=== PATIENT | male | born 1975 ===

== ENCOUNTER 2017-06-21 17:05 | Emergency (ER) | payer SELFPAY ==
--- NOTE | 2017-06-21 17:15 | C.PDOC ---
History Of Present Illness 42M c/o chest pain and productive cough that started several hours ago. the pt says he has been smoking crack continuously and has not slept for 2 days. Time Seen by Provider: 06/21/17 17:13 Chief Complaint (Nursing): Substance Abuse Past Medical History Vital Signs: Last Vital Signs Temp 98.2 F 06/21/17 19:02 Pulse 91 H 06/21/17 19:02 Resp 18 06/21/17 19:02 BP 107/66 06/21/17 19:02 Pulse Ox 97 06/21/17 19:02 Family History: States: Other Other Family History: nc - Social History Hx Alcohol Use: Yes Hx Substance Use: Yes Review Of Systems Constitutional: Negative for: Fever, Chills Cardiovascular: Positive for: Chest Pain. Negative for: Edema Respiratory: Positive for: Cough, Sputum. Negative for: Shortness of Breath, Hemoptysis Gastrointestinal: Negative for: Vomiting, Abdominal Pain Neurological: Negative for: Weakness, Numbness, Headache Psych: Negative for: Psychosis, Suicidal ideation Physical Exam - Physical Exam Appears: Well, Non-toxic, No Acute Distress Skin: Warm, Dry Head: Atraumatic Eye(s): bilateral: PERRL Nose: No Epistaxis Oral Mucosa: Moist Neck: Normal ROM Respiratory: No Decreased Breath Sounds, No Accessory Muscle Use, No Rales, No Rhonchi, No Stridor, No Wheezing Gastrointestinal/Abdominal: Soft, No Tenderness Extremity: No Swelling Neurological/Psych: Oriented x3, Other (no focal deficits) ED Course And Treatment - Laboratory Results Result Diagrams: 06/21/17 18:22 06/21/17 18:22 - Radiology CXR: Interpreted by Me, Viewed By Me CXR Interpretation: Yes: No Acute Disease Medical Decision Making Medical Decision Making: ecg- nsr 72, nl axis, nl int, no acute ischemia cxr- nad the pt requested ativan because he says he doesn't feel well from all the crack he has been smoking. he is resting quietly, calm, in no distress. Disposition - Disposition Referrals: [facility] [Outside] Disposition: HOME/ ROUTINE Disposition Time: 19:05 Condition: STABLE Additional Instructions: Please follow up with a primary doctor. Return to the ER for any worsening symptoms or for any other concerns. Instructions: Cocaine Abuse (ED) Forms: General Discharge Instructions, [employer] [facility] (Wallisian) - Clinical Impression Clinical Impression: Cocaine abuse
[2017-06-21 18:25] LABS: BASO # 0.1 K/uL (0.0-0.2); BASO % 0.8 % (0.0-2.0); EOS # 0.4 K/uL (0.0-0.7); EOS % 5.8 % (0.0-4.0); HEMOGLOBIN 14.8 g/dL (12.0-18.0); LYMPH # 1.8 K/uL (1.0-4.3); LYMPH % 28.3 % (20.0-40.0); MEAN CELL VOLUME 94.2 fL (80.0-94.0); MEAN CORPUSCULAR HEMOGLOBIN 32.2 pg (27.0-31.0); MEAN CORPUSCULAR HGB CONC 34.2 g/dL (33.0-37.0); MEAN PLATELET VOLUME 8.1 fL (7.2-11.7); MONO # 0.8 K/uL (0.0-0.8); MONO % 13.2 % (0.0-10.0); NEUT # 3.2 K/uL (1.8-7.0); NEUT % 51.9 % (50.0-75.0); NRBC % 0.1 % (0.0-2.0); RBC 4.59 Mil/uL (4.40-5.90); RED CELL DISTRIBUTION WIDTH 13.6 % (11.5-14.5); WHITE BLOOD COUNT 6.2 K/uL (4.8-10.8)
[2017-06-21 18:44] LABS: ALB/GLOB RATIO 1.5 (1.0-2.1); ALBUMIN 3.9 g/dL (3.5-5.0); ALT/SGPT 32 U/L (21-72); AST/SGOT 25 U/L (17-59); BLOOD UREA NITROGEN 25 mg/dL (9-20); CALCIUM 8.6 mg/dl (8.6-10.4); GFR AFRICAN-AMERICAN > 60; GFR NON-AFRICAN AMERICAN > 60
[2017-06-21 19:02] VITALS: BP 107/66; PULSE 91; RESP 18; TEMP 98.2; O2SAT 97
--- NOTE | 2017-06-21 21:15 | RAD ---
HISTORY: cp COMPARISON: No prior. TECHNIQUE: Chest PA and lateral FINDINGS: LUNGS: No active pulmonary disease. PLEURA: No significant pleural effusion identified. No pneumothorax apparent. CARDIOVASCULAR: Normal. OSSEOUS STRUCTURES: No significant abnormalities. VISUALIZED UPPER ABDOMEN: Normal. OTHER FINDINGS: None. IMPRESSION: No active disease.
== END 2017-06-21 19:10 | disposition home or self-care (01) ==
LOC: C.ER 17:05
DX: F14.10 Cocaine abuse, uncomplicated (principal)

== ENCOUNTER 2017-07-06 12:01 | Emergency (ER) | payer SELFPAY ==
[2017-07-06 12:09] VITALS: BP 124/80; PULSE 82; RESP 18; TEMP 97.5; O2SAT 100
--- NOTE | 2017-07-06 12:44 | C.PDOC ---
History Of Present Illness 42-YEAR-OLD MALE, PRESENTS TO THE EMERGENCY DEPARTMENT WANTING DETOX. CO B/L FOOT PAIN FOR UNK DURATION. "I JUST WANT TO SLEEP". EXAM EXT ATRAUM PSYCH CALM NO ACUTE INTOX REMAINDER NEG Time Seen by Provider: 07/06/17 12:16 Chief Complaint (Nursing): Substance Abuse History Per: Patient History/Exam Limitations: intoxication Current Symptoms Are (Timing): Still Present Past Medical History Reviewed: Historical Data, Nursing Documentation, Vital Signs Vital Signs: Last Vital Signs Temp 97.5 F L 07/06/17 12:08 Pulse 82 07/06/17 12:08 Resp 18 07/06/17 12:08 BP 124/80 07/06/17 12:08 Pulse Ox 100 07/06/17 12:48 Family History: States: No Known Family Hx - Social History Hx Alcohol Use: Yes Hx Substance Use: Yes - Immunization History Hx Tetanus Toxoid Vaccination: No Hx Influenza Vaccination: No Hx Pneumococcal Vaccination: No Review Of Systems Constitutional: Negative for: Fever, Chills Cardiovascular: Negative for: Chest Pain, Palpitations Respiratory: Negative for: Shortness of Breath Gastrointestinal: Negative for: Nausea, Vomiting Musculoskeletal: Positive for: Foot Pain. Negative for: Back Pain Neurological: Negative for: Weakness, Numbness, Headache, Dizziness Psych: Negative for: Suicidal ideation Physical Exam - Physical Exam Appears: Non-toxic, No Acute Distress, Other (CALM AND COOPERATIVE) Skin: Warm, Dry, No Rash Head: Atraumatic, Normacephalic Eye(s): bilateral: Normal Inspection, PERRL Nose: Normal Oral Mucosa: Moist Lips: Normal Appearing Neck: Normal ROM Cardiovascular: Rhythm Regular, No Murmur Respiratory: Normal Breath Sounds, No Accessory Muscle Use Extremity: Normal ROM, No Deformity Neurological/Psych: Oriented x3, Normal Speech, Other (NO FOCAL DEFICIT ) ED Course And Treatment O2 Sat by Pulse Oximetry: 100 (RA) Pulse Ox Interpretation: Normal - Physician Consult Information Time Consulting Physician Contacted: 12:48 Outcome Of Conversation: D/W CRISIS DUNG NO DETOX BEDS AVAIL Disposition Counseled Patient/Family Regarding: Diagnosis, Need For Followup - Disposition Referrals: [facility] [Outside] [facility] [Outside] Disposition: HOME/ ROUTINE Disposition Time: 12:42 Condition: GOOD Forms: [facility] (Belarusian), General Discharge Instructions - Clinical Impression Clinical Impression: Malingerer, Polysubstance abuse - Scribe Statement The provider has reviewed the documentation as recorded by the Scribe (Tiana Guevara) All medical record entries made by the Scribe were at my direction and personally dictated by me. I have reviewed the chart and agree that the record accurately reflects my personal performance of the history, physical exam, medical decision making, and the department course for this patient. I have also personally directed, reviewed, and agree with the discharge instructions and disposition.
--- NOTE | 2017-07-06 12:44 | C.PDOC ---
History Of Present Illness 42-YEAR-OLD MALE, PRESENTS TO THE EMERGENCY DEPARTMENT WITH COMPLAINTS OF Time Seen by Provider: 07/06/17 12:16 Chief Complaint (Nursing): Substance Abuse Past Medical History Reviewed: Historical Data, Nursing Documentation, Vital Signs Vital Signs: Last Vital Signs Temp 97.5 F L 07/06/17 12:08 Pulse 82 07/06/17 12:08 Resp 18 07/06/17 12:08 BP 124/80 07/06/17 12:08 Pulse Ox 100 07/06/17 12:08 Family History: States: No Known Family Hx - Social History Hx Alcohol Use: Yes Hx Substance Use: Yes - Immunization History Hx Tetanus Toxoid Vaccination: No Hx Influenza Vaccination: No Hx Pneumococcal Vaccination: No ED Course And Treatment O2 Sat by Pulse Oximetry: 100 Disposition - Disposition Referrals: [facility] [Outside] [facility] [Outside] Disposition: HOME/ ROUTINE Condition: GOOD Forms: General Discharge Instructions, [facility] (Estonian) - Clinical Impression Clinical Impression: Malingerer, Polysubstance abuse - Scribe Statement The provider has reviewed the documentation as recorded by the Scribe (Eloisa Guevara) All medical record entries made by the Scribe were at my direction and personally dictated by me. I have reviewed the chart and agree that the record accurately reflects my personal performance of the history, physical exam, medical decision making, and the department course for this patient. I have also personally directed, reviewed, and agree with the discharge instructions and disposition.
== END 2017-07-06 13:14 | disposition home or self-care (01) ==
LOC: C.ER 12:01
DX: Z76.5 Malingerer [conscious simulation] (principal); F19.10 Other psychoactive substance abuse, uncomplicated